=== PATIENT | male | born 1950 | race Caucasian/White ===

== ENCOUNTER 2022-07-05 19:27 | Inpatient (IN) | payer MEDICARE, BC ==
[2022-07-05] MEDS ORDERED: Lactated Ringers 500 ML IV ONE ×2 (20:34→21:25)
[2022-07-05] MEDS ORDERED: Metoprolol Tartrate 25 MG Tab PO ONE (20:34)
[2022-07-05 21:40] LABS: CORONAVIRUS COVID-19 NAA NEGATIVE (NEGATIVE)
[2022-07-05] MEDS ORDERED: Meropenem Premix 500 MG in Premix Bag 1 BAG IV ONE (21:43)
[2022-07-05] MEDS ORDERED: Vancomycin 1.75 GM in Sodium Chloride 0.9% 500 ML IV ONE (22:00)
[2022-07-06] MEDS ORDERED: Meropenem 0.5 GM in Sodium Chloride 0.9% 100 ML IV ONE (00:07)
[2022-07-06] MEDS ORDERED: Lactated Ringers 1,000 ML IV ONE (00:18)
[2022-07-06] MEDS ORDERED: Hydrocortisone Sodium Succinate 100 MG/2 ML SDV IVPUSH ONE (00:19)
[2022-07-06] MEDS ORDERED: Acetaminophen 325 MG Tab PO PRN (01:06)
[2022-07-06] MEDS ORDERED: Ondansetron 4 MG/2 ML SDV IV PRN (01:06)
[2022-07-06] MEDS ORDERED: Norepinephrine 4 MG in Dextrose 5% in Water 246 ML IV SCH ×2 (01:15)
[2022-07-06] MEDS ORDERED: Lactated Ringers 1,000 ML IV SCH (02:00)
[2022-07-06] MEDS ORDERED: Potassium Chloride 20 MEQ Tab.ER PO ONE (06:19)
[2022-07-06] MEDS: NS + KCl 20mEq/L 1,000 ML IV SCH ×2 (06:31→17:16)
[2022-07-06] MEDS ORDERED: predniSONE 20 MG Tab PO SCH (07:00)
[2022-07-06] MEDS: Meropenem 500 MG in Sodium Chloride 0.9% 100 ML IV SCH ×3 (07:58→20:01)
[2022-07-06] MEDS ORDERED: Meropenem 1 GM in Sodium Chloride 0.9% 100 ML IV SCH (08:00)
[2022-07-06] MEDS ORDERED: Meropenem Premix 500 MG in Premix Bag 1 BAG IV SCH (08:00)
[2022-07-06] MEDS: Enoxaparin 40 MG/0.4 ML Syringe SUBCUT SCH (08:18)
[2022-07-06] MEDS: Acetaminophen 325 MG Tab PO PRN ×2 (09:12→17:23)
[2022-07-06] MEDS: Clopidogrel 75 MG Tab PO SCH (11:45)
[2022-07-06] MEDS ORDERED: VANCOmycin 1.25 GM/250 ML 1.25 GM in Premix Bag 1 BAG IV SCH (14:00)
[2022-07-06] MEDS ORDERED: Pantoprazole 40 MG Tab.CR PO SCH (16:15)
[2022-07-06] MEDS: Pantoprazole 40 MG Tab.CR PO SCH (16:36)
[2022-07-06] MEDS: Metoprolol Tartrate 25 MG Tab PO SCH (20:45)
[2022-07-07] MEDS: Meropenem 500 MG in Sodium Chloride 0.9% 100 ML IV SCH ×4 (00:46→18:54)
[2022-07-07] MEDS: Acetaminophen 325 MG Tab PO PRN ×4 (03:31→19:02)
[2022-07-07] MEDS: NS + KCl 20mEq/L 1,000 ML IV SCH (03:32)
[2022-07-07] MEDS: Pantoprazole 40 MG Tab.CR PO SCH (06:31)
[2022-07-07] MEDS: Clopidogrel 75 MG Tab PO SCH (08:09)
[2022-07-07] MEDS: predniSONE 5 MG Tab PO SCH (08:09)
[2022-07-07] MEDS: Metoprolol Tartrate 25 MG Tab PO SCH ×2 (08:12→20:07)
[2022-07-07] MEDS: Enoxaparin 40 MG/0.4 ML Syringe SUBCUT SCH (08:15)
[2022-07-07] MEDS: Folic Acid 1 MG Tab PO SCH (08:15)
[2022-07-07] MEDS: TOFACITINIB CITRATE 5 MG PO SCH ×2 (08:16→20:08)
[2022-07-07] MEDS: VANCOmycin 1.5 GM/300 ML 1.5 GM in Premix Bag 1 BAG IV SCH (08:18)
[2022-07-08] MEDS: Meropenem 500 MG in Sodium Chloride 0.9% 100 ML IV SCH ×4 (01:01→20:32)
[2022-07-08] MEDS: VANCOmycin 1.5 GM/300 ML 1.5 GM in Premix Bag 1 BAG IV SCH ×2 (01:02→20:40)
[2022-07-08] MEDS: Pantoprazole 40 MG Tab.CR PO SCH (06:32)
[2022-07-08] MEDS: Clopidogrel 75 MG Tab PO SCH (08:47)
[2022-07-08] MEDS: Folic Acid 1 MG Tab PO SCH (08:47)
[2022-07-08] MEDS: Enoxaparin 40 MG/0.4 ML Syringe SUBCUT SCH (08:47)
[2022-07-08] MEDS: predniSONE 5 MG Tab PO SCH (08:47)
[2022-07-08] MEDS: Metoprolol Tartrate 25 MG Tab PO SCH ×2 (08:48→20:42)
[2022-07-08] MEDS: TOFACITINIB CITRATE 5 MG PO SCH ×2 (08:52→21:01)
[2022-07-08] MEDS: Acetaminophen 325 MG Tab PO PRN ×2 (15:32→20:45)
[2022-07-08] MEDS ORDERED: Benzocaine/Cetylpyridinium/Menthol Lozenge MUCMEM PRN (17:24)
[2022-07-09] MEDS: Meropenem 500 MG in Sodium Chloride 0.9% 100 ML IV SCH ×3 (01:32→12:48)
[2022-07-09] MEDS: Pantoprazole 40 MG Tab.CR PO SCH (05:13)
[2022-07-09] MEDS: Clopidogrel 75 MG Tab PO SCH (08:32)
[2022-07-09] MEDS: Folic Acid 1 MG Tab PO SCH (08:32)
[2022-07-09] MEDS: predniSONE 5 MG Tab PO SCH (08:32)
[2022-07-09] MEDS: Metoprolol Tartrate 25 MG Tab PO SCH (08:37)
[2022-07-09] MEDS: Enoxaparin 40 MG/0.4 ML Syringe SUBCUT SCH (08:38)
[2022-07-09] MEDS: Acetaminophen 325 MG Tab PO PRN (09:47)
[2022-07-09] MEDS: TOFACITINIB CITRATE 5 MG PO SCH (09:50)
[2022-07-09] MEDS: VANCOmycin 1.5 GM/300 ML 1.5 GM in Premix Bag 1 BAG IV SCH (13:17)
== END 2022-07-09 15:24 | disposition home or self-care (01) | DRG 871 ==
LOC: JD.ED 19:27 → JD.ICU 07-06 00:45
PROVIDERS: ADMIT Internal Medicine; ATTEND Internal Medicine
DX: A41.9 Sepsis, unspecified organism (principal); R65.21 Severe sepsis with septic shock; L03.113 Cellulitis of right upper limb; E87.1 Hypo-osmolality and hyponatremia; Z20.822 Contact with and (suspected) exposure to COVID-19; I48.91 Unspecified atrial fibrillation; I25.10 Atherosclerotic heart disease of native coronary artery without angina pectoris; M06.9 Rheumatoid arthritis, unspecified; K21.9 Gastro-esophageal reflux disease without esophagitis; M19.90 Unspecified osteoarthritis, unspecified site; Z95.5 Presence of coronary angioplasty implant and graft; Z79.899 Other long term (current) drug therapy; Z88.0 Allergy status to penicillin; Z98.890 Other specified postprocedural states
CPT/HCPCS: 0240U; 36415; 71045; 71045-26; 80053; 80202; 81001; 83605; 83735; 83880; 84484; 85025; 85027; 85610; 87040; 93005; 93010; 93307; 93971-26-RT; 93971-RT; 96361; 96365; 96366; 96367; 99284-25; 99285; A9270-GY; J0282; J1650; J2185; J3370; J3475; J3480; J3490; J7040; J7120; J7512